=== PATIENT | female | born 2005 | race Caucasian/White ===

== ENCOUNTER 2024-10-18 21:13 | Emergency (ER) | payer OTHER, SELFPAY ==
[2024-10-18 21:24] VITALS: BP 133/75
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
== END 2024-10-18 23:36 | disposition home or self-care (01) ==
LOC: EMR 21:13
PROVIDERS: EMERGENCY PHYSICIAN Student in an Organized Health Care Education/Training Program; FAMILY PHYSICIAN Registered Nurse
DX: F41.8 Other specified anxiety disorders (principal)
CPT/HCPCS: 99283

== ENCOUNTER 2025-01-27 17:37 | Emergency (ER) | payer OTHER, SELFPAY ==
[2025-01-27 17:39] VITALS: BP 138/102
--- NOTE | 2025-01-27 18:19 | ED.GENMED ---
History of Present Illness
General
Chief Complaint: Crisis Evaluation
Time Seen by Provider: 01/27/25 18:18
History of Present Illness
History of Present Illness:
TIME OF INITIAL ENCOUNTER: 6:20 PM
HPI: The patient tells me that she is here because 'I want a report my mother'. The patient states that she has lost about 17 pounds recently as she is just living on 'canned peas and rice crispy treats'. She states that her mother would not buy
her any other food. She states that the mom has been canceling her credit cards and turned off access to her phone (however she does have access to Wi-Fi currently). She states that her mother brought her here but does not want the mother in the
room currently. She denies any medical complaints.
I spoke to the Mother in the waiting room. She tells me that the patient has been using the credit cards excessively ordering things the cost $2000 at a time. She has been using her grandmothers debit card. Mom states that she is out of control
with her spending. This is why she was cut off from her credit card and other communication.
EXAM:
GENERAL: Well appearing in no distress
HEENT: Moist oral mucosa
NEUROLOGIC: Excellent strength all extremities, no coordination deficits
PSYCHIATRIC: Pressured speech, logic somewhat lacking at times
EXTREMITIES: Nontender, no edema, moves all extremities equally
SKIN: No rash, no lesions
NUMBER AND COMPLEXITY OF PROBLEMS ADDRESSED AT THE ENCOUNTER
� Chronic conditions affecting care: Autism, bipolar, ADHD, PTSD, oppositional defiant disorder
� Acute Exacerbation and/or Progression of Chronic Illness: This is an acute problem
� Differential Diagnosis includes: Exacerbation of bipolar, ODD, unclear exactly what is going on with her social situation the patient did have a crisis evaluation about 3 months ago
AMOUNT AND/OR COMPLEXITY OF DATA TO BE REVIEWED AND ANALYZED
� I performed an independent evaluation of and my interpretation is:
EKG:
CT:
X-rays:
Laboratory Studies:
Other:
� Review of other/old records: I reviewed records the patient was recently seen by [facility] 3 months ago
� Clinical information was obtained by an independent historian: I spoke to mother�see above
� Prescriptions/Medications Considered but not given:
� Further testing considered but not performed:
RISK OF COMPLICATIONS AND/OR MORBIDITY OR MORTALITY OF PATIENT MANAGEMENT
� Social determinants of health affecting care: Lives at home with mother
� Discussion with other providers: I spoke to [facility] who spoke to both patient and mother. Resources given and patient already has follow-up with a psychiatrist tomorrow. Mother is eager to have the psychiatrist to adjust her
medications. No clear indication for transfer to a psychiatric facility at this time.
� Escalation of care including admission/observation vs risk of discharge considered:
ANY OTHER UPDATES:
Phy Exam
Physical Exam
Physical Exam:
See HPI
Course
Orders/Labs/Results
Orders:
Orders
01/27/25 17:50
Crisis Consult Urgent
Reason for Consult: issues with parents, acting out
Vital Signs
Initial and Last Documented VS:
Initial Vital Signs
Temp Pulse Resp BP Pulse Ox
36.6 C 97 16 138/102 98
01/27/25 17:39 01/27/25 17:39 01/27/25 17:39 01/27/25 17:39 01/27/25 17:39
Last Documented Vital Signs
Temp Pulse Resp BP Pulse Ox
36.6 C 97 16 138/102 98
01/27/25 17:39 01/27/25 17:39 01/27/25 17:39 01/27/25 17:39 01/27/25 17:39
*Critical Care Note
Total Time (30-74mins, 75-104mins- exclusive of procedures): Not Applicable
ED Attending Note
-
Portions of this chart may have been created with voice recognition software.� Occasional wrong word or��sound alike� substitutions may have occurred due to the inherent limitations of voice recognition software.
Discharge Plan
Departure
Patient Disposition: Home (Routine Discharge)
Date of Disposition: 01/27/25
Time of Disposition: 20:39
Patient with high blood pressure during this ER visit?: Yes
Discharge Problem:
Bipolar disorder
Referrals:
Silvia Gomez CRNP [Family Provider] -
Activity Restrictions/Additional Instructions:
Follow-up as recommended by crisis. Return here if worse or other concerns.
Interventions
Interventions:
*Risk Screen - Suicide Last Done: 01/27/25 17:39
*General Assessment Last Done: 01/27/25 17:39
*Neglect/Abuse Screening Last Done: 01/27/25 17:44
*ED- Fall Risk Assessment Last Done: 01/27/25 17:47
*ED COVID-19 Vaccine History Last Done: 01/27/25 17:47
ED-Psychological Assessment Last Done: 01/27/25 19:30
Discharge Date and Time
Print Language: PARAGUAYAN
[2025-01-27 20:48] VITALS: BP 120/84
== END 2025-01-27 20:48 | disposition home or self-care (01) ==
LOC: EMR 17:37
PROVIDERS: EMERGENCY PHYSICIAN Emergency Medicine; FAMILY PHYSICIAN Registered Nurse
DX: F31.9 Bipolar disorder, unspecified (principal); R03.0 Elevated blood-pressure reading, without diagnosis of hypertension
CPT/HCPCS: 99283

== ENCOUNTER 2025-03-04 21:43 | Emergency (ER) | payer OTHER, SELFPAY ==
[2025-03-04 21:47] VITALS: BP 118/66
[2025-03-04 22:45] VITALS: BMI 30.4
[2025-03-04 22:46] VITALS: BP 90/62
[2025-03-04 23:00] VITALS: BP 81/52
--- NOTE | 2025-03-04 23:11 | ED.GENMED ---
History of Present Illness
General
Chief Complaint: Skin Problem
Time Seen by Provider: 03/04/25 23:11
History of Present Illness
History of Present Illness:
TIME OF INITIAL ENCOUNTER: 11:20 PM
HPI: The patient has history of bipolar disorder. I saw this patient 1 month ago and at that time we arranged for close psychiatric outpatient follow-up. She was placed on paliperidone 25 days ago. She was taking Benadryl to help her sleep. Her
mom wanted her to get off the Benadryl. When she got off the Benadryl mom noted hives to the right forearm. She has also been constipated. She took 'a pill' for constipation but this did not help. She is also concerned because of leakage of
urine. She has no urinary burning nor dysuria. She has no back pain.
EXAM:
GENERAL: Well appearing in no distress
HEENT: Moist oral mucosa
ABDOMEN: Soft with no peritoneal signs, no tenderness, no CVA tenderness
NEUROLOGIC: Excellent strength all extremities, no coordination deficits
PSYCHIATRIC: Appropriate mental status, normal insight and judgement
EXTREMITIES: Nontender, no edema, moves all extremities equally
SKIN: There is a subtle papular rash to the dorsal aspect of the right forearm
NUMBER AND COMPLEXITY OF PROBLEMS ADDRESSED AT THE ENCOUNTER
� Chronic conditions affecting care: Bipolar, autism, PTSD
� Acute Exacerbation and/or Progression of Chronic Illness: This is an acute problem
� Differential Diagnosis includes: Psychogenic, somatoform disorder, UTI, medication side effects
AMOUNT AND/OR COMPLEXITY OF DATA TO BE REVIEWED AND ANALYZED
� I performed an independent evaluation of and my interpretation is:
EKG:
CT:
X-rays:
Laboratory Studies: hCG negative, urinalysis shows greater than 100 white cells but also shows greater than 30 squamous epithelial cells
Other:
� Review of other/old records: I reviewed notes from last 2 visits here at [facility]
� Clinical information was obtained by an independent historian: I spoke with mother at bedside
� Prescriptions/Medications Considered but not given: Considered oral steroids however given her mental illness, I recommend against steroids
� Further testing considered but not performed:
RISK OF COMPLICATIONS AND/OR MORBIDITY OR MORTALITY OF PATIENT MANAGEMENT
� Social determinants of health affecting care: Lives at home
� Discussion with other providers:
� Escalation of care including admission/observation vs risk of discharge considered: The patient states that she refuses to urinate into a cup given prior PTSD. Therefore we are using a hat to collect a specimen. Regarding the
constipation, I recommended MiraLAX. I also recommended resuming the Benadryl for a period of time.
ANY OTHER UPDATES:
2 AM: The patient just wants to go home. Urinalysis shows questionable infection but likely contaminated. She has multiple antibiotic allergies. Mom knows that she can tolerate doxycycline. She does not think that she has ever been on
nitrofurantoin. She has appeared comfortable throughout her stay in the emergency department
Phy Exam
Physical Exam
Physical Exam:
See HPI
Course
Orders/Labs/Results
Orders:
Orders
03/04/25 22:57
Bladder Scan- Treatment ONCE
HCG, Urine Qualitative Screen Urgent
Date Specimen was Collected: 03/05/25
Time Specimen was Collected: 00:07
Urinalysis Reflex To Culture Urgent
Date Specimen was Collected: 03/05/25
Time Specimen was Collected: 00:07
Test Result ONCE
03/05/25 00:10
Urine Microscopic Reflex Cult Urgent
Urine Culture Urgent
YVON Source: U
Specimen Description:
Date Specimen was Collected: 03/05/25
Time Specimen was Collected: 00:07
03/05/25 01:56
Doxycycline [Vibramycin] 100 mg PO NOW STA
Abnormal Lab Results
03/05/25
00:10
Leukocyte Esterase Rfl 2+ A
(Negative)
Urine RBC 3-6 A /HPF
(0-2)
Urine WBC (Reflex) >100 A /HPF
(0-5)
Urine Bacteria (Reflex) Many A
(Negative)
Urine Albumin (Reflex) 1+ A
(Neg - Trace)
Vital Signs
Initial and Last Documented VS:
Initial Vital Signs
Temp Pulse Resp BP Pulse Ox
36.5 C 69 16 118/66 99
03/04/25 21:47 03/04/25 21:47 03/04/25 21:47 03/04/25 21:47 03/04/25 21:47
Last Documented Vital Signs
Temp Pulse Resp BP Pulse Ox
36.5 C 69 16 91/56 98
03/04/25 21:47 03/04/25 21:47 03/04/25 21:47 03/05/25 02:00 03/05/25 02:00
*Critical Care Note
Total Time (30-74mins, 75-104mins- exclusive of procedures): Not Applicable
ED Attending Note
-
Portions of this chart may have been created with voice recognition software.� Occasional wrong word or��sound alike� substitutions may have occurred due to the inherent limitations of voice recognition software.
Discharge Plan
Departure
Patient Disposition: Home (Routine Discharge)
Date of Disposition: 03/05/25
Time of Disposition: 01:56
Patient with high blood pressure during this ER visit?: Yes
Discharge Problem:
Urinary leakage
Prescriptions:
New
doxycycline hyclate 100 mg tablet
100 mg PO BID Qty: 14 0RF
No Action
rizatriptan 10 mg Tablet
10 mg PO PRN PRN (Reason: migraine)
Hydroxy Compound Tablet
25 tab PO BID
guanfacine 1 mg Tablet
1 mg PO DAILY
drospirenone-ethinyl estradiol [Loryna (28)] 3-0.02 mg Tablet
1 tab PO DAILY
guanfacine 3 mg Tablet Extended Release 24 Hr
3 mg PO QPM
Referrals:
[facility] [Other]
Activity Restrictions/Additional Instructions:
The urinalysis shows questionable signs of infection. You have an extensive list of antibiotic allergies. We can try doxycycline which may or may not treat a urinary tract infection. It is very possible you do not have a urinary tract infection
as you do have a lot of skin cells that were seen in the urinalysis today. Urine culture is pending.
Interventions
Interventions:
*Risk Screen - Suicide Last Done: 03/04/25 21:47
*General Assessment Last Done: 03/04/25 22:45
*Neglect/Abuse Screening Last Done: 03/04/25 21:47
*ED- Fall Risk Assessment Last Done: 03/04/25 22:45
*ED COVID-19 Vaccine History Last Done: 03/04/25 22:45
ED-Skin Assessment Last Done: 03/04/25 22:50
Discharge Date and Time
Print Language: DJIBOUTIAN
[2025-03-05 00:23] LABS: HCG, Urine Qualitative Screen Negative
[2025-03-05 00:58] VITALS: BP 91/55
[2025-03-05 01:08] LABS: Urine Albumin 1+ (Neg - Trace); Urine Bilirubin Negative (Negative); Urine Character Slightly Cloudy (Clear); Urine Color Yellow; Urine Glucose Negative (Negative); Urine Ketone Negative (Negative); Urine Leukocyte 2+ (Negative); Urine Nitrite Negative (Negative); Urine Occult Blood Negative (Negative); Urine Specific Gravity 1.025 (<1.030); Urine Urobilinogen Negative (Neg - 1+)
[2025-03-05 01:32] LABS: Urine Amorphous Seen; Urine Bacteria Many (Negative); Urine Mucus Many; Urine Squamous Cell >30 /LPF (Few); Urine White Cell >100 /HPF (0-5)
[2025-03-05 01:33] LABS: Urine Urothelial Cell >30 /LPF (FEW)
[2025-03-05 02:00] VITALS: BP 91/56
[2025-03-05] MEDS: VIBRAMYCIN 100 MG PO (02:02)
== END 2025-03-05 02:09 | disposition home or self-care (01) ==
LOC: EMR 21:43
PROVIDERS: Emergency Medicine; EMERGENCY PHYSICIAN Emergency Medicine
DX: R32 Unspecified urinary incontinence (principal); F31.9 Bipolar disorder, unspecified
CPT/HCPCS: 99282; 81003; 81015; 81025; 87086

== ENCOUNTER 2025-03-28 12:46 | Emergency (ER) | payer OTHER, SELFPAY ==
[2025-03-28 13:03] VITALS: BP 95/63
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
[2025-03-28 14:42] LABS: % Basophils 0.4 % (0-2); % Eosinophils 0.9 % (0-6); % Immature Granulocytes 0.1 % (0-0.5); % Lymphocytes 28.3 % (20.5-51.1); % Monocytes 4.1 % (1.7-9.3); % Neutrophils 66.2 % (42.2-75.2); Absolute Eosinophils 0.1 10^3/uL (0-0.7); Absolute Lymphocytes 2.2 10^3/uL (1.2-3.4); Absolute Monocytes 0.3 10^3/uL (0.1-0.6); Absolute Neutrophils 5.1 10^3/uL (1.4-6.5); Hematocrit 38.8 % (37.0-47.0); Hemoglobin 13.2 g/dL (12.0-16.0); Mean Corpuscular Hgb 27.7 pg (27.0-31.0); Mean Corpuscular Volume 81.3 fL (81.0-99.0); Mean Platelet Volume 9.6 fL (7.4-10.4); Nucleated Red Blood Cells % 0 %; Platelet Count 291 10^3/uL (130-400); Red Blood Cell Count 4.77 10^6/uL (4.20-5.40); Red Cell Dist. Width 13.2 % (11.5-14.5); White Blood Cell Count 7.8 10^3/uL (4.8-10.8)
[2025-03-28 14:44] LABS: Urine Albumin 1+ (Neg - Trace); Urine Bilirubin Negative (Negative); Urine Character Clear (Clear); Urine Color Yellow; Urine Glucose Negative (Negative); Urine Ketone 2+ (Negative); Urine Leukocyte 1+ (Negative); Urine Nitrite Negative (Negative); Urine Occult Blood 1+ (Negative); Urine Urobilinogen Negative (Neg - 1+)
[2025-03-28 14:50] LABS: HCG, Serum Qualitative Screen Negative
[2025-03-28 14:54] LABS: ALT (SGPT) 12 U/L (0-35); AST (SGOT) 19 U/L (14-36); Albumin 4.1 g/dl (3.5-5.0); Alkaline Phosphatase 74 U/L (38-126); Blood Urea Nitrogen 9 mg/dl (7-17); Calcium 9.7 mg/dl (8.4-10.2); Carbon Dioxide 24 mmol/L (22-30); Chloride 110 mmol/L (98-107); Glucose 106 mg/dl (70-99); Potassium 4.2 mmol/L (3.5-5.1); Sodium 140 mmol/L (135-145); Total Bilirubin 0.4 mg/dl (0.2-1.3); Total Protein 7.4 g/dl (6.3-8.2); eGFR > 60.00
[2025-03-28 14:55] LABS: Urine Squamous Cell >30 /LPF (Few)
[2025-03-28 14:57] LABS: Urine Granular Cast 0-2 /LPF (0); Urine Mucus Moderate; Urine White Cell 16-20 /HPF (0-5)
[2025-03-28 14:58] LABS: Urine Bacteria Few (Negative); Urine Red Blood Cell 0-2 /HPF (0-2)
[2025-03-28 17:24] VITALS: BP 104/56
== END 2025-03-28 18:25 | disposition home or self-care (01) ==
LOC: EMR 12:46
PROVIDERS: Physician Assistant; EMERGENCY PHYSICIAN Emergency Medicine
DX: R07.89 Other chest pain (principal); M54.2 Cervicalgia; Y04.0XXA Assault by unarmed brawl or fight, initial encounter; F84.0 Autistic disorder; F43.10 Post-traumatic stress disorder, unspecified; F31.9 Bipolar disorder, unspecified; F90.9 Attention-deficit hyperactivity disorder, unspecified type
CPT/HCPCS: 99284; 70498; 71046; 80053; 81003; 81015; 84703; 85025; 87086; Q9967

== ENCOUNTER 2025-03-28 19:57 | Emergency (ER) | payer OTHER, SELFPAY ==
[2025-03-28 20:10] VITALS: BP 118/76
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
--- NOTE | 2025-03-28 22:22 | EDRN ---
Grandmother is at bedside with patient at this time per patient's request
--- NOTE | 2025-03-28 23:20 | EDRN ---
Patient cleared by telepsych and to be discharged
== END 2025-03-28 23:20 | disposition home or self-care (01) ==
LOC: EMR 19:57
PROVIDERS: EMERGENCY PHYSICIAN Emergency Medicine; PRIMARYCARE PHYSICIAN Registered Nurse
DX: F31.9 Bipolar disorder, unspecified (principal); F90.9 Attention-deficit hyperactivity disorder, unspecified type; F84.0 Autistic disorder; F43.10 Post-traumatic stress disorder, unspecified; F42.9 Obsessive-compulsive disorder, unspecified; Z88.2 Allergy status to sulfonamides; Z88.6 Allergy status to analgesic agent
CPT/HCPCS: 99283; 70498; 71046; 80053; 81003; 81015; 84703; 85025; 87086; Q9967